=== PATIENT | male | born 1985 | race Caucasian/White ===

== ENCOUNTER 2016-10-28 07:36 | Day surgery (SDC) | payer SELFPAY ==
[2016-10-25 17:05] VITALS: BMI 27.4
[2016-10-28] MEDS ORDERED: PROPOFOL 20 ML ONE ×3 (08:48)
[2016-10-28] MEDS ORDERED: MIDAZOLAM HCL 2 MG/2 ML SINGLE DOSE VIAL ONE (08:48)
[2016-10-28] MEDS ORDERED: GENTAMICIN SO4 80 MG/2 ML VIAL ONE (09:00)
[2016-10-28] MEDS ORDERED: ceFAZolin SODIUM 1 GM VIAL ONE (09:00)
[2016-10-28] MEDS ORDERED: GENTAMICIN SO4 80 MG/2 ML VIAL IVPB ONE (09:09)
[2016-10-28] MEDS ORDERED: ceFAZolin SODIUM 1 GM VIAL IVPB ONE (09:09)
[2016-10-28] MEDS ORDERED: FUROSEMIDE 40 MG/4 ML INJECTABLE VIAL ONE (09:18)
[2016-10-28] MEDS ORDERED: ONDANSETRON 4 MG/2 ML VIAL IVPUSH PRN (09:29)
[2016-10-28] MEDS ORDERED: oxyCODONE HCL 5 MG TABLET PO PRN ×3 (09:29→09:44)
[2016-10-28] MEDS ORDERED: LACTATED RINGERS SOLUTION 1,000 ML IV SCH (09:30)
[2016-10-28] MEDS ORDERED: ELECTROLYTE-148 SOLN 1,000 ML IV SCH (09:45)
--- NOTE | 2016-10-28 09:47 | OP ---
Operative Note - Note: Operative Date: 10/28/16 Pre-Operative Diagnosis: left kidney stones Operation: cysto, stent removal left ureteroscopy/laser litho/stone basketing/ stent replacement Findings: left kidney stones Post-Operative Diagnosis: Same as Pre-op Surgeon: Jose Armando Cuevas Anesthesia: General Specimens Removed: stone frags Estimated Blood Loss (mls): 5 Drains & Tubes with Location: 8fr, 24cm stent Operative Report Dictated: Yes
[2016-10-28 11:19] VITALS: TEMP 98.3
[2016-10-28] MEDS ORDERED: oxyCODONE HCL 5 MG TABLET ONE (12:17)
[2016-10-28 13:23] VITALS: BP 143/87; PULSE 64
--- NOTE | 2016-10-29 09:36 | PATH ---
Surgical Pathology Report Patient Name: GERRI THOMAS Med. Rec. #: [id number] /Age/Gender: 1985 (Age: 31) / M Account: [id number] Location: [facility] SURGICAL Taken: 10/28/2016 Received: 10/28/2016 Reported: 10/29/2016 Physicians: Jose Armando Cuevas M.D. Specimen(s) Received A: LEFT URETERAL STENT B: KIDNEY STONE Clinical History Kidney stone Final Diagnosis A. BOILER OPERATOR, LEFT URETER, REMOVAL: URETERAL STENT (GROSS ONLY). B. KIDNEY STONE, EXTRACTION: CALCULI SUBMITTED FOR CHEMICAL ANALYSIS (gross only). Electronically Signed Andrea Clemente M.D. Gross Description A. Received fresh, labeled "left ureteral stent," is a 40 cm in length green-blue, coiled portion of tubing, consistent with a ureteral stent. No soft tissue is present. No sections are submitted, gross only. B. Received fresh, labeled "kidney stone," is a 0.5 cm in greatest dimension bueno, irregular calculus which is sent for chemical analysis. /10/28/2016 saudi10/28/2016
--- NOTE | 2016-10-29 15:33 | OP ---
DATE OF OPERATION: 10/28/2016 PREOPERATIVE DIAGNOSIS: Left kidney stone. POSTOPERATIVE DIAGNOSIS: Left kidney stone. PROCEDURE: Cystoscopy, stent removal, ureteroscopy, laser lithotripsy, stone basketing and stent placement. SURGEON: Nora Mcclure MD INDICATION: The patient is a 31-year-old male with history of very large stone burden obstructing his left ureter and kidney, who was initially taken to the OR about 3 weeks ago and cleared of the ureteral stone burden and some of the kidney stone burden. He was taken back to the OR today for a second stage procedure for treatment of the remaining left kidney stone burden. DESCRIPTION OF PROCEDURE: Patient was taken to the operating room, placed supine on the table with cardiac monitoring administered and general anesthesia established. He was prepped and draped in dorsal lithotomy position. He was given 1 g of Ancef and 1 mL of gentamicin. Cystoscope was inserted into the urethra, then into the bladder without difficulty. The stent was seen emanating from the left ureteral orifice. A guidewire was advanced alongside the stent into the left renal pelvis. This was confirmed by fluoroscopy. Then a grasper was used to grab the stent out, and through the stent a second guidewire was advanced into the left renal pelvis. Over the second guidewire a flexible ureteroscope was advanced into the kidney. There were several stones noted in the kidney close to 1 cm in size. These stones were pulverized to fine dust of 1- to 2-mm fragments. One of the fragments was then removed with the stone basket and sent to Pathology for analysis. The entire left upper collecting system was inspected. It was a bifid system. No other large stones were noted. Ureteroscope was then removed. Entire ureter was inspected, and although there was some evidence of edema from the prior impacted stones that were in the ureter, there was no evidence of stretcher so the scope was able to go beyond the areas of edema. No other stones were noted in the ureter. Ureteroscope was then removed and an 8-Azeri 24-cm double pigtail stent was then advanced in a monorail fashion. Fluoroscopy confirmed the stent to be in good position. Patient was then awoken from anesthesia and transferred to the recovery room in stable condition. There were no complications. Estimated blood loss was approximately 5 mL. NORA MCCLURE M.D. [id number]
[2016-11-08 14:12] LABS: COLOR Orange (.); URIC ACID 100 % (.)
== END 2016-10-28 13:05 | disposition home or self-care (01) ==
LOC: JASU-SURG 07:36
PROVIDERS: ATTEND Urology
PROC: 0TF48ZZ Fragmentation in Left Kidney Pelvis, Via Natural or Artificial Opening Endoscopic (ICD-10-PCS; principal; 2016-10-28 09:00)
PROC: 0T778DZ Dilation of Left Ureter with Intraluminal Device, Via Natural or Artificial Opening Endoscopic (ICD-10-PCS; 2016-10-28 09:00)
PROC: 0TC78ZZ Extirpation of Matter from Left Ureter, Via Natural or Artificial Opening Endoscopic (ICD-10-PCS; 2016-10-28 09:00)
DX: N20.0 Calculus of kidney (principal)
CPT/HCPCS: 36415; 76000-TC; 82360; 88300-TC; 94760